=== PATIENT | male | born 1960 | race American Indian/Alaskan Native ===

== ENCOUNTER 2021-04-06 23:23 | Emergency (ER) | payer MEDICARE ==
--- NOTE | 2021-04-07 01:54 | Cat Scan Report ---
CT head/brain wo con, CT cervical spine wo con INDICATION / CLINICAL INFORMATION: Pt slipped and fell backwards hitting head, now with head pain. TECHNIQUE: Axial coronal and sagittal images All CT scans at this location are performed using CT dose reduction for ALARA by means of automated exposure control. COMPARISON: None available. FINDINGS: : No acute intracranial hemorrhage. Ventricles are normal in size without midline shift or mass effect. No extra-axial fluid collection is seen. Mild ethmoid sinus disease. CT cervical spine Cervical spine alignment appears normal. Advanced discogenic degenerative changes endplate changes th roughout cervical spine. Uncovertebral degenerative changes seen throughout. Odontoid appears normal. No prevertebral soft tissue swelling. Neuroforaminal narrowing is suggested several levels. IMPRESSION: 1. No acute findings are seen in the head. 2. Advanced degenerative change throughout cervical spine without acute fracture. Signer Name: Jimy Phipps MD Signed: 04/07/2021 1:50 AM Workstation Name: [id number]
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
--- NOTE | 2021-04-07 03:50 | XRay Report ---
Pelvis and bilateral hips INDICATION: Hip pain FINDINGS: Bilateral femoral heads well-seated in the acetabulum. Mild degenerative change. Degenerati ve change in lower lumbar spine. Sacrum appears normal. IMPRESSION: Degenerative change in bilateral hips and lower lumbar spine. Signer Name: Jimy Phipps MD Signed: 04/07/2021 3:46 AM Workstation Name: [id number]
[2021-04-07 04:24] VITALS: BP 149/92
== END 2021-04-07 04:32 | disposition home or self-care (01) ==
LOC: ED 23:23
DX: S09.90XA Unspecified injury of head, initial encounter (principal); S13.9XXA Sprain of joints and ligaments of unspecified parts of neck, initial encounter; S70.02XA Contusion of left hip, initial encounter; S70.01XA Contusion of right hip, initial encounter; M54.2 Cervicalgia; M19.91 Primary osteoarthritis, unspecified site; F17.200 Nicotine dependence, unspecified, uncomplicated; Z98.890 Other specified postprocedural states; Z79.899 Other long term (current) drug therapy; W19.XXXA Unspecified fall, initial encounter; Y93.89 Activity, other specified; Y92.009 Unspecified place in unspecified non-institutional (private) residence as the place of occurrence of the external cause; Y99.8 Other external cause status
CPT/HCPCS: 70450; 72125; 73521

== ENCOUNTER 2021-04-25 19:22 | Emergency (ER) | payer MEDICARE ==
[2021-04-25] MEDS ORDERED: TETANUS,DIPH,PERTUSS(ACELL) VACCINE 0.5 ML SYRINGE IM ONE (20:06)
[2021-04-25] MEDS ORDERED: LIDOCAINE 1%/EPINEPHRINE 1:100,000 VIAL (20 ML) INFILTRATI ONE (20:07)
[2021-04-25] MEDS ORDERED: SODIUM CHLORIDE 0.9% IRR 500 ML BOTTLE IR ONE (20:07)
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
[2021-04-25 20:48] LABS: Basophils % (Auto) 1.4 % (0.0-1.8); Eosinophils # (Auto) 0.2 K/mm3 (0.0-0.4); Hematocrit 40.6 % (35.5-45.6); Hemoglobin 13.4 gm/dl (11.8-15.2); Lymphocytes # (Auto) 1.1 K/mm3 (1.2-5.4); Lymphocytes % (Auto) 31.9 % (13.4-35.0); Mean Corpuscular HGB Conc 33 % (32-34); Mean Corpuscular Volume 100 fl (84-94); Monocytes # (Auto) 0.5 K/mm3 (0.0-0.8); Monocytes % (Auto) 14.3 % (0.0-7.3); Platelet Count 214 K/mm3 (140-440); Red Blood Count 4.06 M/mm3 (3.65-5.03); Red Cell Distribution Width 15.5 % (13.2-15.2)
[2021-04-25 20:51] LABS: Blood Urea Nitrogen 7 mg/dL (9-20); Calcium 8.6 mg/dL (8.4-10.2); Hemolysis Index 4
[2021-04-25 20:53] LABS: INR 0.95 (0.87-1.13)
[2021-04-25 21:01] LABS: BUN/Creatinine Ratio 12
[2021-04-25] MEDS ORDERED: MAGNESIUM SULFATE 2 GM/50 ML BAG IV ONE (21:03)
--- NOTE | 2021-04-25 21:03 | Cat Scan Report ---
CT head/brain wo con INDICATION / CLINICAL INFORMATION: 61 years Male; Pain after fall, laceration under right eyebrow. TECHNIQUE: Routine CT head without contrast. All CT scans at this location are performed using CT dos e reduction for ALARA by means of automated exposure control. COMPARISON: The study is compared to the previous CT of 04/07/2021. FINDINGS: BRAIN / INTRACRANIAL CONTENTS: There appear to be mild cerebral white matter changes most consistent with microvascular angiopathy. There is also mild cerebral and cerebellar atrophy with associated mil d prominence of the ventricular system. There is no clear CT evidence of acute intracranial hemorrhag e or significant mass effect. ORBITS: No significant abnormality of visualized orbits. SINUSES / MASTOIDS: There is mild scattered mucosal thickening within the ethmoid air cells. CRANIOCERVICAL JUNCTION: No significant abnormality. ADDITIONAL FINDINGS: There appears be mild edema involving right supraorbital soft tissues. IMPRESSION: 1. There is continued mild microvascular angiopathy and atrophy as described without clear CT evidenc e of acute intracranial hemorrhage. Signer Name: Manish Ramirez MD Signed: 04/25/2021 8:59 PM Workstation Name: [id number]
--- NOTE | 2021-04-25 21:08 | Cat Scan Report ---
CT cervical spine wo con INDICATION / CLINICAL INFORMATION: 61 years Male; Pain after fall. TECHNIQUE: Axial CT images of the cervical spine were obtained. Sagittal and coronal reformatted images were pr oduced. All CT scans at this location are performed using CT dose reduction for ALARA by means of aut omated exposure control. COMPARISON: The study is compared to the previous CT of 04/07/2021. FINDINGS: POST-SURGICAL CHANGES: None. ALIGNMENT: There is continued mild reversal of the cervical lordosis with minimal retrolisthesis at C 3 L4 which appears unchanged at. VERTEBRAE: There are also multilevel degenerative disc changes most notable anteriorly at C3-4 and C4 -5 with osteophytic formation. There is also mild to moderate disc space narrowing at C6-7 and C7-T1 also with anterior osteophytic formation. Milder findings are noted at C5-6. The above findings correlate with the previous CT. There is no clear evidence of acute fracture invol ving the cervical spine. INTRAVERTEBRAL DISCS: The spondylosis at C3-4 again appears to encroach on the ventral cord. There is marked neural foraminal narrowing, greater on the right. There is also marked right foraminal narrow ing at C4-5 with effacement of the right lateral recess. Slightly milder narrowing remains on the lef t. The spondylosis at C5-6 effaces the ventral subarachnoid space. There is moderate right neural forami nal narrowing. There is moderate to marked right foraminal narrowing at C6-7 with encroachment on the right lateral recess. There is moderate foraminal narrowing at C7-T1, greater on the left. PARASPINAL SOFT TISSUES: No definitive prevertebral soft tissue fluid collections are identified. ADDITIONAL FINDINGS: None. IMPRESSION: 1. There is no CT evidence of acute fracture involving the cervical spine. 2. There are continued multilevel degenerative changes as detailed above. Signer Name: Manish Ramirez MD Signed: 04/25/2021 9:03 PM Workstation Name: [id number]
--- NOTE | 2021-04-25 21:23 | XRay Report ---
BILATERAL SHOULDERS 6 VIEWS INDICATION / CLINICAL INFORMATION: Pain in shoulders after fall. COMPARISON: None available. FINDINGS: BONES and JOINT(S): No acute fracture or subluxation. Mild/moderate arthritis is seen along the AC tasha ints. SOFT TISSUES: No significant abnormality. ADDITIONAL FINDINGS: Sternotomy changes are partially visualized. IMPRESSION: 1. No acute findings. 2. Degenerative changes as above. Signer Name: Cheko Morrow MD Signed: 04/25/2021 9:19 PM Workstation Name: [id number]
[2021-04-25] MEDS ORDERED: THIAMINE 100 MG, FOLIC ACID 1 MG, MULTIPLE VITAMIN INJ, ADULT 10 ML in SODIUM CHLORIDE ... IV ONE (21:30)
[2021-04-25 22:29] VITALS: BP 153/87
== END 2021-04-25 22:28 | disposition home or self-care (01) ==
LOC: ED 19:22
DX: S01.111A Laceration without foreign body of right eyelid and periocular area, initial encounter (principal); S09.90XA Unspecified injury of head, initial encounter; S16.1XXA Strain of muscle, fascia and tendon at neck level, initial encounter; S40.012A Contusion of left shoulder, initial encounter; S40.011A Contusion of right shoulder, initial encounter; F10.129 Alcohol abuse with intoxication, unspecified; M19.91 Primary osteoarthritis, unspecified site; F17.200 Nicotine dependence, unspecified, uncomplicated; Z79.899 Other long term (current) drug therapy; W01.0XXA Fall on same level from slipping, tripping and stumbling without subsequent striking against object, initial encounter; Y93.89 Activity, other specified; Y92.89 Other specified places as the place of occurrence of the external cause; Y99.8 Other external cause status
CPT/HCPCS: 12013; 36415; 70450; 72125; 73030; 80048; 85025; 85610; 85730; 90471; 90715; 96365; 99284; J3411; J3475; J7030; 80320; G0480